=== PATIENT | male | born 1945 | race African-American/Black ===

== ENCOUNTER 2022-04-21 10:45 | Inpatient (IN) | payer MEDICARE, OTHER ==
[~2022-04-21] VITALS: Ht 175.3 cm; Wt 61.8 kg
[~2022-04-21 10:45] MED LIST: ASPI-1497 PO; LISI-186 PO
[2022-04-21 11:26] LABS: BASOPHILS % 0.5 % (0.0-2.0); EOSINOPHILS % 6.6 % (0.0-5.0); HEMATOCRIT. 42.8 % (42.0-52.0); LYMPHOCYTES % 40.2 % (20.0-50.0); MEAN CORPUSCULAR HEMOGLOBIN 27.8 pg (28.0-32.0); MEAN CORPUSCULAR VOLUME 85.1 fL (80.0-94.0); MEAN PLATELET VOLUME 8.8 fl (7.4-10.4); NEUTROPHILS % 41.7 % (40.0-76.0); PLATELET 166 x1000/uL (130-400); RED BLOOD CELL COUNT 5.03 mill/uL (4.7-6.1); RED CELL DISTRIBUTION WIDTH 13.5 % (11.6-14.6)
[2022-04-21 11:32] LABS: CHLORIDE 100 mEq/L (98-107)
[2022-04-21 15:40] VITALS: BP 129/80
[2022-04-21] MEDS ORDERED: CALC-889 PO (16:22)
[2022-04-21] MEDS ORDERED: ATOR-2 MT (16:22)
[2022-04-21] MEDS ORDERED: PANT40TA51 PO (16:22)
[2022-04-21] MEDS ORDERED: TAMS-11 PO (16:22)
[2022-04-21] MEDS ORDERED: CLOP75TA33 PO (16:22)
[2022-04-21] MEDS ORDERED: AMLO10TA80 PO (16:22)
[2022-04-21] MEDS ORDERED: GUAIFENESIN 200MG/10ML SUGAR FREE UDC PO PRN (17:45)
[2022-04-21] MEDS ORDERED: ACETAMINOPHEN 325MG TABLET PO PRN (17:45)
[2022-04-21] MEDS ORDERED: DOCUSATE SODIUM 100MG CAPSULE PO PRN (17:45)
[2022-04-21] MEDS ORDERED: TRAMADOL 50MG TABLET PO PRN (17:45)
[2022-04-21] MEDS ORDERED: ONDANSETRON HCL 4MG/2ML INJ IV PRN (17:45)
[2022-04-21] MEDS ORDERED: HYDROCODONE/ACETAMINOPHEN 5/325MG TABLET PO PRN (17:45)
[2022-04-21] MEDS ORDERED: MAGNESIUM/ALUMINUM HYDROXIDE/SIMETHICONE 30ML UDC PO PRN (17:45)
[2022-04-21] MEDS ORDERED: NALOXONE HCL 0.4MG/ML VIAL IV PRN (18:00)
[2022-04-21 18:20] VITALS: BP_SYST 130; BP_SYST 137; BP_SYST 144; BP_DIAS 69; BP_DIAS 73; BP_DIAS 77
[2022-04-21 20:00] VITALS: BP_SYST 131; BP_SYST 135; BP_SYST 142; BP_DIAS 72; BP_DIAS 74; BP_DIAS 81
[2022-04-22] VITALS: BP 117/69
[2022-04-22 04:00] VITALS: BP 125/68
[2022-04-22 06:20] LABS: HEMATOCRIT. 38.4 % (42.0-52.0); HEMOGLOBIN. 12.8 g/dL (14.0-18.0); MEAN CORPUSCULAR VOLUME 83.9 fL (80.0-94.0); MEAN PLATELET VOLUME 9.6 fl (7.4-10.4); PLATELET 153 x1000/uL (130-400); RED BLOOD CELL COUNT 4.57 mill/uL (4.7-6.1); RED CELL DISTRIBUTION WIDTH 13.5 % (11.6-14.6)
[2022-04-22 08:00] VITALS: BP 136/75
[2022-04-22] MEDS ORDERED: ENOXAPARIN 40MG/0.4ML SYR SUBCUT SCH (09:00)
[2022-04-22] MEDS ORDERED: LISINOPRIL 5MG TABLET PO SCH (09:00)
[2022-04-22] MEDS ORDERED: ASPIRIN 81MG EC TABLET PO SCH (09:00)
[2022-04-22 10:01] LABS: CHLORIDE 98 mEq/L (98-107)
[2022-04-22 10:13] LABS: HDL CHOLESTEROL 82 mg/dL (40-59); LDL CHOLESTEROL 100 mg/dL (5-100)
[2022-04-22 11:12] VITALS: BP 114/71
[2022-04-22 12:00] VITALS: BP 114/71
[2022-04-22 13:09] LABS: PLATELET ESTIMATE NORMAL
[2022-04-22] MEDS ORDERED: ATORVASTATIN CALCIUM 20MG TABLET PO SCH (21:00)
== END 2022-04-22 12:19 | disposition home or self-care (01) | DRG 74 ==
LOC: ER 10:45 → 7WST 14:06 → EDBEDREQTM 14:07 → EDBEDREQ 14:07 → ENRESERV 14:22 → 7WST 16:00
PROVIDERS: ADMIT Hospitalist; ATTEND Hospitalist
DX: G90.8 Other disorders of autonomic nervous system (principal); E87.1 Hypo-osmolality and hyponatremia; I10 Essential (primary) hypertension; E78.5 Hyperlipidemia, unspecified; I25.10 Atherosclerotic heart disease of native coronary artery without angina pectoris; Z82.49 Family history of ischemic heart disease and other diseases of the circulatory system
CPT/HCPCS: 36415; 71045; 80053; 80061; 83880; 84484; 85025; 93005; 93306; 93970; 99285; J1650